=== PATIENT | female | born 1995 | race Caucasian/White ===

== ENCOUNTER 2018-01-11 16:51 | Emergency (ER) | payer MEDICAID, OTHER ==
[2018-01-11 17:00] VITALS: BP 124/84
[2018-01-11] MEDS ORDERED: Diphtheria,Pertussis(Acell),Tetanus Vaccine 0.5 ML SDV IM ONE (17:14)
[2018-01-11] MEDS ORDERED: Ibuprofen 800 MG Tab PO ONE (17:14)
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
== END 2018-01-11 17:29 | disposition home or self-care (01) ==
LOC: JD.ED 16:51
DX: S61.011A Laceration without foreign body of right thumb without damage to nail, initial encounter (principal); W26.8XXA Contact with other sharp object(s), not elsewhere classified, initial encounter; Z23 Encounter for immunization; Y99.0 Civilian activity done for income or pay
CPT/HCPCS: 90471; 90715; 99283; A9270

== ENCOUNTER 2018-03-02 04:28 | Emergency (ER) | payer MEDICAID, OTHER ==
[2018-03-02 04:42] VITALS: BP 111/70
[2018-03-02] MEDS ORDERED: Acetaminophen/HYDROcodone 325-5 MG Tab PO ONE (04:54)
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
--- NOTE | 2018-03-04 15:05 | CR ---
Right elbow: Four views of the right elbow were obtained. Comparison: No previous study. No joint effusion is seen. Joint spaces are preserved. No fracture, dislocation or other bony abnormality is seen. Impression: 1. No abnormality is seen on right elbow study. Diagnostic code #1
--- NOTE | 2018-03-04 15:05 | CR ---
Chest: Two views of the chest were obtained. Comparison: No prior chest x-ray. Heart size and mediastinum are normal. Lungs are clear. Bony structures are unremarkable. Impression: 1. Nothing acute is seen on two-view chest x-ray. Diagnostic code #1
== END 2018-03-02 05:35 | disposition home or self-care (01) ==
LOC: JD.ED 04:28
DX: S30.811A Abrasion of abdominal wall, initial encounter (principal); S50.311A Abrasion of right elbow, initial encounter; S80.212A Abrasion, left knee, initial encounter; S80.211A Abrasion, right knee, initial encounter; V00.131A Fall from skateboard, initial encounter; E66.9 Obesity, unspecified; F17.210 Nicotine dependence, cigarettes, uncomplicated
CPT/HCPCS: 71046; 73080; 99283; A9270; 99284